=== PATIENT | female | born 1975 | race Caucasian/White ===

== ENCOUNTER 2016-05-24 10:54 | Inpatient (IN) | payer OTHER ==
[~2016-05-24] VITALS: Ht 172.7 cm; Wt 126.7 kg
[2016-09-29] MEDS ORDERED: ADVA500A INH (10:52)
[2016-09-29] MEDS ORDERED: ALBUAER3 INH (10:52)
[2016-09-29] MEDS ORDERED: OMEP40CA2 PO (10:52)
[2016-10-02] MEDS ORDERED: metroNIDAZOLE 500 MG INJ 100 ML IV SCH (05:30)
[2016-10-02] MEDS ORDERED: LACTATED RINGER'S 1000 ML IV SCH (05:30)
[2016-10-02] MEDS ORDERED: POVIDONE IODINE 5% (ANTISEPSIS KIT) 4 APPLICATIONS EACH NARE ONE (05:30)
[2016-10-02] MEDS ORDERED: CHLORHEXIDINE GLUCONATE 2 % 1 PACK (2 CLOTHS) TOP ONE (05:30)
[2016-10-02] MEDS ORDERED: SODIUM CHLORID 0.9% 500 ML IV SCH (05:30)
[2016-10-02] MEDS ORDERED: APREPITANT 40 MG CAP PO SCH (05:30)
[2016-10-02] MEDS ORDERED: INSULIN HUMAN REGULAR 1,000 UNITS/10 ML VIAL SQ PRN (05:30)
[2016-10-02] MEDS ORDERED: ACETAMINOPHEN 1000 MG/100 ML VIAL IV SCH (05:30)
[2016-10-02] MEDS ORDERED: METOPROLOL TARTRATE 25 MG TAB PO PRN (05:30)
[2016-10-02] MEDS ORDERED: SCOPOLAMINE 1.5 MG PATCH T-DERMAL SCH (05:30)
[2016-10-02] MEDS ORDERED: ONDANSETRON HCL 4 MG/2 ML VIAL IV PUSH SCH (05:30)
[2016-10-02] MEDS ORDERED: ceFAZolin 2 GM PREMIX 50 ML IV SCH (05:30)
[2016-10-02] MEDS ORDERED: ERGO1CAP10 PO (06:02)
[2016-10-02 06:06] VITALS: BP 144/91; PULSE 87; RESP 20; TEMP 98; O2SAT 99
[2016-10-02] MEDS ORDERED: BUPIVACAINE/EPINEPHRINE 0.25% 50 ML VIAL ONE (06:48)
[2016-10-02] MEDS ORDERED: HYDROmorphone HCL PF 2 MG/ML VIAL ONE (07:00)
[2016-10-02] MEDS ORDERED: FAMOTIDINE 20 MG/2 ML VIAL ONE (07:11)
[2016-10-02] MEDS ORDERED: MIDAZOLAM HCL 2 MG/2 ML VIAL ONE (07:11)
[2016-10-02] MEDS ORDERED: PROPOFOL 200 MG/20 ML AMP IV ONE (07:36)
[2016-10-02] MEDS ORDERED: ONDANSETRON HCL 4 MG/2 ML VIAL IV PUSH ONE (07:36)
[2016-10-02] MEDS ORDERED: LACTATED RINGER'S 1000 ML INJ 1,000 ML IV ONE (07:36)
[2016-10-02] MEDS ORDERED: NEOSTIGMINE 3 MG/3 ML SYR IV ONE (07:36)
[2016-10-02] MEDS ORDERED: METHYLENE BLUE 100 MG/10 ML VIAL OTHER ONE (08:06)
[2016-10-02] MEDS: D5-1/2 NS + KCL 20 MEQ INJ 1,000 ML IV SCH ×3 (09:02→20:09)
[2016-10-02] MEDS ORDERED: Post-op Orders (for Pharmacy) MISC XX ONE (09:15)
[2016-10-02] MEDS ORDERED: diphenhydrAMINE HCL ELIXIR 12.5 MG/5 ML CUP PO PRN (09:15)
[2016-10-02] MEDS ORDERED: NALOXONE HCL 0.4 MG/ML AMP IV PRN (09:15)
[2016-10-02] MEDS ORDERED: ACETAMINOPHEN 325MG/HYDROcodone 7.5MG/15ML UDC PO PRN ×2 (09:15)
[2016-10-02] MEDS ORDERED: ENALAPRILAT 1.25 MG/ML VIAL IV PUSH PRN (09:15)
[2016-10-02] MEDS ORDERED: SODIUM CHLORIDE 0.9% FLUSH 5 ML FLUSH IVF PRN (09:15)
[2016-10-02] MEDS ORDERED: ONDANSETRON HCL 4 MG/2 ML VIAL IV PRN (09:15)
[2016-10-02] MEDS ORDERED: MORPHINE SULFATE 30 MG/30 ML PCA IV SCH (09:15)
[2016-10-02] MEDS ORDERED: diphenhydrAMINE HCL 50 MG/ML VIAL IV PRN (09:15)
[2016-10-02] MEDS ORDERED: fentaNYL CITRATE 250 MCG/5 ML AMP ONE (09:19)
[2016-10-02] MEDS ORDERED: *ONDANSETRON 4 MG VIAL PERIprocedural Use ONLY ONE (09:33)
[2016-10-02] MEDS ORDERED: *morphine SULFATE 8 MG/ML PERIprocedure ONLY ONE ×2 (09:37→10:25)
[2016-10-02] MEDS: METOCLOPRAMIDE HCL 10 MG/2 ML VIAL IVS SCH ×3 (10:00→20:14)
[2016-10-02 12:00] VITALS: BP 122/58; PULSE 81; RESP 17; TEMP 96.7; O2SAT 98
[2016-10-02] MEDS ORDERED: ACETAMINOPHEN 1000 MG/100 ML VIAL IV PRN (12:00)
[2016-10-02] MEDS: PCA - TOTAL MG MORPHINE DELIVERED PER SHIFT SCH ×2 (14:00→20:15)
[2016-10-02] MEDS: metroNIDAZOLE 500 MG INJ 100 ML IV SCH ×2 (15:46→20:10)
[2016-10-02] MEDS: ENOXAPARIN SODIUM 40 MG/0.4 ML SYRINGE SQ SCH (15:47)
--- NOTE | 2016-10-02 15:51 | MP ---
cc: EMELYN MULLIGAN DATE OF SURGERY 10/02/2016 DATE OF 1975 PREOPERATIVE DIAGNOSIS Morbid obesity with a BMI of 42. POSTOPERATIVE DIAGNOSIS Morbid obesity with a BMI of 42. PROCEDURE Laparoscopic Francesco-en-Y gastric bypass, 100-cm Francesco limb, antegastric antecolic. SURGEON Emelyn Mulligan MD SURGEON KNEE BOLTER MD Dr. Kirt Colindres's assistance was necessary for the procedure secondary to the complexity of the case. Dr. Moralez assisted with manipulation and exposure during the entire procedure. Geothermal Production Manager provided by the hospital was utilized at the back table. ANESTHESIA General endotracheal anesthesia. ESTIMATED BLOOD LOSS Scant. FINDINGS Fatty liver. SPECIMENS None. COMPLICATIONS None. OPERATION The patient was brought to the operating room and placed on the operating table in supine position, bilateral sequential inflation device placed on lower extremities, general anesthesia instituted, antibiotics initiated. The abdomen was prepped and draped sterilely. A poin 18-cm distal to the xiphoid in the midline anesthetized with 0.25% Marcaine with epinephrine. The skin incision was made, a 5-mm OptiView port placed under direct vision and pneumoperitoneum was created. Under direct vision a 5-mm left upper quadrant, 12-mm left upper quadrant, 12-mm right upper quadrant and 5-mm right upper quadrant ports were placed. Prior to placement of all ports, the skin and peritoneum were anesthetized with 0.25% Marcaine with epinephrine. The patient's omentum was lifted into the upper abdomen. It was split down the middle to create a path for the Francesco limb. The ligament of Treitz was identified, a point 40 cm distal identified. The small bowel was divided in this region using an [place] Flex stapler vascular load reinforced with SeamGuard. The distal segment was brought up for a distance of 100 cm, enterotomy created in this region, enterotomy in the biliopancreatic limb and a [id number] stapled jejunojejunostomy created in the usual manner. The mesenteric defect at the jejunojejunostomy was closed with 2-0 Surgidac suture in a running manner. The patient was placed in reverse Trendelenburg position with the left side up. The [place]-Flex retractor was placed. The left lobe of the liver was retracted. The angle of His was taken down bluntly, a point 5 cm distal to the GE junction along the lesser curve identified, the lesser sac entered using blunt dissection. The stomach was partitioned horizontally using an [place]-Flex stapler blue load, an additional firing taken directed towards the angle of His to completely divide the stomach. A gastrotomy created in the new stomach, enterotomy in the Francesco limb and gastrojejunostomy created, stomal opening of 2 cm. An 18-Egyptian OG tube was placed across the anastomosis, the defect then closed in two layers of running 2-0 Vicryl. Prior to placement of the second layer, methylene blue instilled through the OG tube. There was no evidence of extravasation. Evicel was then placed over the gastrojejunostomy, jejunojejunostomy and all staple lines. The operative field inspected and hemostasis was present. The CO2 was released, all ports were removed. All skin incisions were closed with 4-0 Monocryl. The abdominal wall was cleaned and a sterile dressing placed. The patient was awakened and taken to the recovery room. MD MEÑO Balderas/KK /9:12 AM /3:38 PM
[2016-10-02 16:00] VITALS: BP 122/60; PULSE 90; RESP 17; TEMP 97.5; O2SAT 98
[2016-10-02 16:17] VITALS: O2SAT 98
[2016-10-02] MEDS: RESP: ALBUTEROL 2.5 MG/3 ML NEB (SCH) INH ×2 (16:31→21:00)
[2016-10-02 20:00] VITALS: BP 116/69; PULSE 87; RESP 20; TEMP 97.7; O2SAT 97
[2016-10-02] MEDS: ONDANSETRON HCL 4 MG/2 ML VIAL IV PRN (20:06)
[2016-10-02] MEDS: SODIUM CHLORIDE 0.9% FLUSH 5 ML FLUSH IVF SCH (20:15)
[2016-10-02 21:02] VITALS: O2SAT 97
[2016-10-03] VITALS (7 sets, daily range): BP systolic 119–141; BP diastolic 60–78; PULSE 56–82; RESP 16–20; TEMP 96–98.4; O2SAT 97–100
[2016-10-03] MEDS: RESP: ALBUTEROL 2.5 MG/3 ML NEB (SCH) INH ×6 (04:00→21:04)
[2016-10-03] MEDS: metroNIDAZOLE 500 MG INJ 100 ML IV SCH (04:43)
[2016-10-03] MEDS: METOCLOPRAMIDE HCL 10 MG/2 ML VIAL IVS SCH (04:43)
[2016-10-03] MEDS: PCA - TOTAL MG MORPHINE DELIVERED PER SHIFT SCH (04:51)
[2016-10-03 05:15] LABS: AUTOMATED NEUTROPHIL # 6.3 TH/MM3 (1.8-7.7); BASOPHIL % 0.5 % (0.0-2.0); EOSINOPHIL % 0.3 % (0.0-4.0); HEMATOCRIT 31.5 % (35.0-46.0); HEMO FLAGS DIFF FINAL; LYMPH % 27.8 % (9.0-44.0); LYMPHOCYTE # 2.8 TH/MM3 (1.0-4.8); MEAN CELL VOLUME 81.5 FL (80.0-100.0); MEAN CORPUSCULAR HEMOGLOBIN 25.6 PG (27.0-34.0); MEAN CORPUSCULAR HGB CONC 31.4 % (32.0-36.0); MONO % 8.7 % (0.0-8.0); NEUT % 62.7 % (16.0-70.0); PLATELET COUNT 276 TH/MM3 (150-450); RED BLOOD COUNT 3.87 MIL/MM3 (4.00-5.30); RED CELL DISTRIBUTION WIDTH 15.2 % (11.6-17.2); WHITE BLOOD COUNT 10.1 TH/MM3 (4.0-11.0)
[2016-10-03 05:45] LABS: BICARBONATE 26.5 MEQ/L (21.0-32.0); MAGNESIUM 2.2 MG/DL (1.5-2.5); POTASSIUM 3.8 MEQ/L (3.5-5.1)
[2016-10-03] MEDS: SODIUM CHLORIDE 0.9% FLUSH 5 ML FLUSH IVF SCH ×2 (07:57→21:00)
[2016-10-03] MEDS: PANTOPRAZOLE SODIUM 40 MG VIAL IVP SCH (07:57)
[2016-10-03] MEDS: PANTOPRAZOLE SOD 40 MG DELAYED RELEASE TAB PO SCH (07:57)
[2016-10-03] MEDS: D5-1/2 NS + KCL 20 MEQ INJ 1,000 ML IV SCH ×3 (07:58→17:23)
[2016-10-03] MEDS ORDERED: PNEUMOCOCCAL POLYVALENT INJ 25 MCG/0.5 ML SYR IM ONE (10:00)
[2016-10-03] MEDS ORDERED: INFLUENZA VIRUS VACCINE (QUADRIVALENT) 0.5 ML SYR IM ONE (10:00)
[2016-10-03] MEDS ORDERED: METOCLOPRAMIDE HCL 10 MG/2 ML VIAL IVS PRN (10:00)
[2016-10-03] MEDS: ONDANSETRON HCL 4 MG/2 ML VIAL IV PRN ×2 (11:51→18:14)
[2016-10-03] MEDS: ENOXAPARIN SODIUM 40 MG/0.4 ML SYRINGE SQ SCH (13:55)
[2016-10-04] VITALS: BP 134/88; PULSE 88; RESP 20; TEMP 99.7; O2SAT 96
[2016-10-04] MEDS: RESP: ALBUTEROL 2.5 MG/3 ML NEB (SCH) INH ×3 (00:36→07:45)
[2016-10-04 00:39] VITALS: O2SAT 99
[2016-10-04] MEDS: D5-1/2 NS + KCL 20 MEQ INJ 1,000 ML IV SCH ×3 (01:02→08:10)
[2016-10-04 07:45] VITALS: O2SAT 98
[2016-10-04 08:00] VITALS: BP 124/81; PULSE 90; RESP 17; TEMP 97.4; O2SAT 98
[2016-10-04] MEDS: PANTOPRAZOLE SODIUM 40 MG VIAL IVP SCH (08:07)
[2016-10-04] MEDS: SODIUM CHLORIDE 0.9% FLUSH 5 ML FLUSH IVF SCH (08:10)
[2016-10-04] MEDS: PANTOPRAZOLE SOD 40 MG DELAYED RELEASE TAB PO SCH (08:11)
--- NOTE | 2016-10-04 11:02 | HHI.PR ---
Subjective Subjective Notes pt comfortable no cp no sob agatha liquids Objective Vitals/I&O Vital Signs Date Time Temp Pulse Resp B/P Pulse Ox O2 Delivery O2 Flow Rate FiO2 10/04/16 08:00 97.4 90 17 124/81 98 10/04/16 00:39 21 10/02/16 10:30 Nasal Cannula 4 Abdomen: Post-op tenderness Extremities: Perfused Wound Wound : Wound Location: Abdomen Appearance: Clean & Dry A/P Assessment and Plan s/p LRYGBP doing well d/c home Kwame Pedraza MD Oct 04, 2016 11:02
== END 2016-10-04 11:53 | disposition home or self-care (01) | DRG 621 ==
LOC: HSDI 10-02 05:06 → N07B 10-02 11:10
PROVIDERS: ADMIT Surgery; ATTEND Surgery
PROC: 0D164ZA Bypass Stomach to Jejunum, Percutaneous Endoscopic Approach (ICD-10-PCS; principal; 2016-10-02 07:15)
DX: E66.01 Morbid (severe) obesity due to excess calories (principal); K76.0 Fatty (change of) liver, not elsewhere classified; Z68.41 Body mass index [BMI] 40.0-44.9, adult; K21.9 Gastro-esophageal reflux disease without esophagitis; J45.909 Unspecified asthma, uncomplicated
CPT/HCPCS: 80048; 83735; 85025; 90686; 90732; 94150; 94640; 94664; J0131; J0690; J1170; J1650; J2250; J2270; J2405; J2710; J2765; J3010; J3480; J7120; J7613; J8501; Q2038

== ENCOUNTER 2016-10-10 15:34 | Inpatient (IN) | payer OTHER ==
[~2016-10-10] VITALS: Ht 172.7 cm; Wt 130.0 kg
[~2016-10-10 15:34] MED LIST: ADVA500A INH; ALBUAER3 INH; ERGO1CAP10 PO; OMEP40CA2 PO
[2016-10-10 15:40] VITALS: BP 127/80; PULSE 87; RESP 16; TEMP 97.9; O2SAT 98
[2016-10-10] MEDS ORDERED: SODIUM CHLORIDE 0.9% FLUSH 10 ML FLUSH IV FLUSH PRN (17:00)
[2016-10-10] MEDS ORDERED: SODIUM CHLOR 0.9% 1000 ML INJ 1,000 ML IV SCH (17:00)
[2016-10-10] MEDS ORDERED: ONDANSETRON HCL 4 MG/2 ML VIAL IVP ONE (17:00)
[2016-10-10] MEDS ORDERED: MORPHINE SULFATE 4 MG/ML INJ IV PUSH ONE (17:00)
[2016-10-10 17:03] VITALS: RESP 18; O2SAT 100
[2016-10-10 17:20] LABS: AUTOMATED NEUTROPHIL # 7.7 TH/MM3 (1.8-7.7); BASOPHIL % 0.4 % (0.0-2.0); EOSINOPHIL # 0.1 TH/MM3 (0-0.4); EOSINOPHIL % 0.6 % (0.0-4.0); HEMO FLAGS DIFF FINAL; LYMPH % 13.4 % (9.0-44.0); LYMPHOCYTE # 1.3 TH/MM3 (1.0-4.8); MEAN CELL VOLUME 81.7 FL (80.0-100.0); MEAN CORPUSCULAR HEMOGLOBIN 26.4 PG (27.0-34.0); MEAN CORPUSCULAR HGB CONC 32.3 % (32.0-36.0); MONO % 4.7 % (0.0-8.0); NEUT % 80.9 % (16.0-70.0); PLATELET COUNT 322 TH/MM3 (150-450); RED BLOOD COUNT 4.53 MIL/MM3 (4.00-5.30); RED CELL DISTRIBUTION WIDTH 15.2 % (11.6-17.2); WHITE BLOOD COUNT 9.5 TH/MM3 (4.0-11.0)
[2016-10-10 17:22] LABS: BLOOD, URINE NEG (NEG); COMMENT (UR) CULT NOT INDICATED; CULTURE IF INDICATED CULT NOT INDICATED; GLUCOSE,URINE NEG (NEG); HYALINE CAST, URINE 1 /lpf (RARE); KETONE, URINE 150 mg/dL (NEG); MUCUS URINE FEW /lpf (OCC); NITRITE,URINE NEG (NEG); PH, URINE 5.5 (5.0-8.5); SQUAMOUS EPITHELIAL CELL URINE 1 /hpf (0-5); URINE COLOR YELLOW (YELLW/STRAW)
[2016-10-10] MEDS ORDERED: DIATRIZOATE MEGLUM/DIATRIZOATE SOD 9 ML CUP ONE (17:22)
[2016-10-10 17:55] LABS: ANION GAP 11 MEQ/L (5-15); AST (GOT) 36 U/L (15-37); BICARBONATE 18.3 MEQ/L (21.0-32.0); BLOOD UREA NITROGEN 9 MG/DL (7-18); CHLORIDE 105 MEQ/L (98-107); GLOMERULAR FILTRATION RATE 87 ML/MIN (>89); SODIUM (NA) 134 MEQ/L (136-145)
[2016-10-10 18:00] LABS: ALKALINE PHOSPHATASE 50 U/L (45-117); ALT (GPT) 60 U/L (10-53); BETA HCG QUANT LESS THAN 1 MIU/ML (0-5); TOTAL BILIRUBIN ADULT 0.6 MG/DL (0.2-1.0)
--- NOTE | 2016-10-10 18:04 | PD ---
HPI Chief Complaint: Abdominal Pain Time Seen by Provider: 16:52 Travel History International Travel<30 days: No Contact w/Intl Traveler<30days: No Traveled to known affect area: No History of Present Illness HPI 41-year-old woman who presents emergent [place] of abdominal pain. She underwent a laparoscopic Francesco-en-Y gastric bypass bariatric surgery with Dr. Estrella 8 days ago, on October 02. She initially was doing well. She is continuing on her liquid diet as instructed. She was not needing any pain medicine. Today she started getting nausea vomiting and epigastric abdominal pain. She took her liquid Lortab as prescribed, as well as some Zofran. She spoke to Dr. Estrella's office. She is not improving and so she was referred to the emergency department. Her last bowel movement was 4 days ago. There is some concern she may have constipation as well so she took 2 Colace tablets. She has been passing gas. Boyfriend/ states that she is she also having increasing belching. She has had some chills, no urinary symptoms. No other complaints. History Past Medical History Narrative Medical Morbid obesity, status post Francesco-en-Y gastric bypass October 02, 2016 : 1 Para: 1 Social History Alcohol Use: No Tobacco Use: No Allergies-Medications (Allergen,Severity, Reaction): Coded Allergies: No Known Allergies (Unverified , 10/02/16) Reported Meds & Prescriptions Reported Meds & Active Scripts Active Reported Zofran Odt (Ondansetron Odt) 4 Mg Tab 4 Mg SL Q6HR PRN Colace (Docusate Sodium) 100 Mg Cap 100 Mg PO BID PRN Hydrocodone-Acetaminophen Liq 7.5-325 Mg/15 Ml Soln 15 Ml PO Q4-6H PRN Pantoprazole (Pantoprazole Sodium) 40 Mg Tab 40 Mg PO DAILY Vitamin D (Ergocalciferol) 50,000 Unit Cap 50,000 Units PO Q7D Proair Hfa 8.5 GM Inh (Albuterol Sulfate) 90 Mcg/Act Aer 2 Puff INH Q4-6H PRN 108 mcg/actuation Advair Diskus Inh (Fluticasone-Salmeterol Inh) 500-50 Mcg/Blist Aer 2 Puff INH BID Rinse mouth after use. Review of Systems Except as stated in HPI: all other systems reviewed are Neg Physical Exam Narrative GENERAL: Well-appearing 41 year-old woman, appears uncomfortable but nontoxic. SKIN: Focused skin assessment warm/dry. HEAD: Atraumatic. Normocephalic. CARDIOVASCULAR: Regular rate and rhythm. No murmur appreciated. RESPIRATORY: No accessory muscle use. Clear to auscultation. Breath sounds equal bilaterally. GASTROINTESTINAL: Abdomen is obese, soft. She has 5 laparoscopic port incisions that are well approximated, Steri-Strips in place without any drainage or erythema or redness. She has moderate epigastric tenderness to palpation. No rebound or guarding. MUSCULOSKELETAL: No obvious deformities. No edema. NEUROLOGICAL: Awake and alert. No obvious cranial nerve deficits. Motor grossly within normal limits. Normal speech. PSYCHIATRIC: Appropriate mood and affect; insight and judgment normal. Data Data Last Documented VS Vital Signs Date Time Temp Pulse Resp B/P Pulse Ox O2 Delivery O2 Flow Rate FiO2 10/10/16 17:03 18 100 Room Air 10/10/16 15:40 97.9 87 127/80 Orders Beta Hcg (Quant/Titer) (10/10/16 17:00) Complete Blood Count With Diff (10/10/16 17:00) Comprehensive Metabolic Panel (10/10/16 17:00) Lipase (10/10/16 17:00) Urinalysis - C+S If Indicated (10/10/16 17:00) Iv Access Insert/Monitor (10/10/16 17:00) Ecg Monitoring (10/10/16 17:00) Oximetry (10/10/16 17:00) NPO (10/10/16 17:00) Morphine Inj (Morphine Inj) (10/10/16 17:00) Ondansetron Inj (Zofran Inj) (10/10/16 17:00) Sodium Chlor 0.9% 1000 Ml Inj (Ns 1000 M (10/10/16 17:00) Sodium Chloride 0.9% Flush (Ns Flush) (10/10/16 17:00) Ed Urine Pregnancytest Poc (10/10/16 17:00) Ct Abd/Pel W Iv Contrast(Rout) (10/10/16 ) Oral Contrast - Adult (10/10/16 17:16) Diatrizoate Liq ( Gastroview Liq) (10/10/16 17:22) Iohexol 350 Inj (Omnipaque 350 Inj) (10/10/16 18:34) Admit Order (Ed Use Only) (10/10/16 ) Morphine Inj (Morphine Inj) (10/10/16 19:15) Ondansetron Inj (Zofran Inj) (10/10/16 19:15) Labs Laboratory Tests Test 10/10/16 17:12 White Blood Count 9.5 TH/MM3 Red Blood Count 4.53 MIL/MM3 Hemoglobin 12.0 GM/DL Hematocrit 37.0 % Mean Corpuscular Volume 81.7 FL Mean Corpuscular Hemoglobin 26.4 PG Mean Corpuscular Hemoglobin 32.3 % Concent Red Cell Distribution Width 15.2 % Platelet Count 322 TH/MM3 Mean Platelet Volume 7.7 FL Neutrophils (%) (Auto) 80.9 % Lymphocytes (%) (Auto) 13.4 % Monocytes (%) (Auto) 4.7 % Eosinophils (%) (Auto) 0.6 % Basophils (%) (Auto) 0.4 % Neutrophils # (Auto) 7.7 TH/MM3 Lymphocytes # (Auto) 1.3 TH/MM3 Monocytes # (Auto) 0.4 TH/MM3 Eosinophils # (Auto) 0.1 TH/MM3 Basophils # (Auto) 0.0 TH/MM3 CBC Comment DIFF FINAL Differential Comment Urine Color YELLOW Urine Turbidity CLEAR Urine pH 5.5 Urine Specific [place] 1.028 Urine Protein 30 mg/dL Urine Glucose (UA) NEG mg/dL Urine Ketones 150 mg/dL Urine Occult Blood NEG Urine Nitrite NEG Urine Bilirubin NEG Urine Urobilinogen 2.0 MG/DL Urine Leukocyte Esterase NEG Urine RBC LESS THAN 1 /hpf Urine WBC 1 /hpf Urine Squamous Epithelial 1 /hpf Cells Urine Hyaline Casts 1 /lpf Urine Mucus FEW /lpf Microscopic Urinalysis Comment CULT NOT INDICATED Sodium Level 134 MEQ/L Potassium Level 4.0 MEQ/L Chloride Level 105 MEQ/L Carbon Dioxide Level 18.3 MEQ/L Anion Gap 11 MEQ/L Blood Urea Nitrogen 9 MG/DL Creatinine 0.74 MG/DL Estimat Glomerular Filtration 87 ML/MIN Rate Random Glucose 82 MG/DL Calcium Level 9.4 MG/DL Total Bilirubin 0.6 MG/DL Aspartate Amino Transf 36 U/L (AST/SGOT) Alanine Aminotransferase 60 U/L (ALT/SGPT) Alkaline Phosphatase 50 U/L Total Protein 8.5 GM/DL Albumin 4.1 GM/DL Lipase 317 U/L Human Chorionic Gonadotropin, LESS THAN 1 Quant MIU/ML MDM Medical Decision Making Medical Screen Exam Complete: Yes Emergency Medical Condition: Yes Interpretation(s) LABS: CBC unremarkable. CMP unremarkable. HCG negative Lipase normal UA unremarkable CT abdomen and pelvis: Multiple dilated loops of jejunum with some wall thickening involving portions of the dilated loops suggesting possible partial small bowel obstruction, ileus and/or jejunitis. Differential Diagnosis Obstruction, gastric outlet obstruction, gastritis, infection or abscess, ileus , other Narrative Course Medical decision making INITIAL: Is a 41-year-old woman who presents to the emergency department complaining of epigastric abdominal pain for 8 days status post gastric bypass surgery. She has epigastric tenderness. She was doing well initially. I spoke with Dr. Estrella, we'll get CT of the abdomen and pelvis, reassess. Sharif Parham MD Oct 10, 2016 18:04
[2016-10-10] MEDS ORDERED: COLA100C3 PO (18:21)
[2016-10-10] MEDS ORDERED: PANT40TA3 PO (18:21)
[2016-10-10] MEDS ORDERED: ZOFR4TAB3 SL (18:21)
[2016-10-10] MEDS ORDERED: HYDR1SOL3 PO (18:21)
[2016-10-10] MEDS ORDERED: IOHEXOL 350 MG/ML 10 ML VIAL (for RAD DIAG) IV ONE (18:34)
--- NOTE | 2016-10-10 19:02 | RADRPT ---
EXAM DATE/TIME: 10/10/2016 18:27 [facility] COMPARISON: No previous studies available for comparison. INDICATIONS : Severe pain with vomiting after gastric bypass yesterday. IV CONTRAST: 86 cc Omnipaque 350 (iohexol) IV ORAL CONTRAST: Prescribed oral contrast ingested. RADIATION DOSE: 26.03 CTDIvol (mGy) MEDICAL HISTORY : Uterine fibroids. SURGICAL HISTORY : Gastric bypass. Uterine fibroid removed. ENCOUNTER: Initial ACUITY: 1 day PAIN SCALE: 6/10 LOCATION: Abdomen/pelvis TECHNIQUE: Volumetric scanning of the abdomen and pelvis was performed. Using automated exposure control and ad justment of the mA and/or kV according to patient size, radiation dose was kept as low as reasonably achievable to obtain optimal diagnostic quality images. FINDINGS: There are several loops of mildly dilated jejunum within the mid abdomen as well as mild wall thicken ing involving portions of the dilated loops suggesting focal jejunitis and possible partial small bow el obstruction or ileus. Some ascites is noted adjacent to the dilated jejunal loops and within the pelvis. There is diffuse fatty infiltration of the liver. No focal hepatic mass is noted. No bilia ry ductal dilatation is noted. The gallbladder is unremarkable. The spleen is normal. Gastric bypa ss with probable gastrojejunostomy is noted. The pancreas is normal. The adrenal glands are normal bilaterally. The kidneys enhance briskly and demonstrate no evidence of focal mass or hydronephrosis . The uterus is enlarged and contains at least two fibroids measuring 5.4 cm and 2.9 cm. The urinar y bladder is unremarkable. No adnexal mass is noted. The colon is nondilated. Ileal loops are unre markable. The visualized lung bases are clear. CONCLUSION: 1. Multiple dilated loops of jejunum with some wall thickening involving portions of the dilated loo ps suggesting possible partial small bowel obstruction, ileus and/or jejunitis. 2. Fatty liver. 3. Fibroid uterus. 4. Minimal ascites within the abdomen and pelvis. Bart Rivera MD on October 10, 2016 at 18:47 Board Certified Radiologist. This report was verified electronically.
[2016-10-10] MEDS: MORPHINE SULFATE 4 MG/ML INJ IV PUSH PRN (22:17)
[2016-10-10 23:08] VITALS: BP 116/59; PULSE 91; RESP 20; O2SAT 98
[2016-10-11] VITALS (8 sets, daily range): BP systolic 102–130; BP diastolic 55–69; PULSE 78–98; RESP 18–20; TEMP 97.6–98.4; O2SAT 94–100
[2016-10-11] MEDS: D5-1/2 NS + KCL 20 MEQ INJ 1,000 ML IV SCH ×3 (02:15→22:15)
[2016-10-11] MEDS: ONDANSETRON HCL 4 MG/2 ML VIAL IV PUSH PRN ×4 (02:32→22:12)
[2016-10-11] MEDS: MORPHINE SULFATE 4 MG/ML INJ IV PUSH PRN ×4 (02:52→22:06)
[2016-10-11 08:01] LABS: AUTOMATED NEUTROPHIL # 5.9 TH/MM3 (1.8-7.7); BASOPHIL % 0.5 % (0.0-2.0); EOSINOPHIL # 0.2 TH/MM3 (0-0.4); EOSINOPHIL % 1.7 % (0.0-4.0); HEMATOCRIT 34.8 % (35.0-46.0); HEMO FLAGS DIFF FINAL; LYMPH % 27.1 % (9.0-44.0); LYMPHOCYTE # 2.6 TH/MM3 (1.0-4.8); MEAN CELL VOLUME 81.1 FL (80.0-100.0); MEAN CORPUSCULAR HEMOGLOBIN 26.8 PG (27.0-34.0); MONO % 9.6 % (0.0-8.0); NEUT % 61.1 % (16.0-70.0); PLATELET COUNT 346 TH/MM3 (150-450); RED BLOOD COUNT 4.29 MIL/MM3 (4.00-5.30); RED CELL DISTRIBUTION WIDTH 15.6 % (11.6-17.2); WHITE BLOOD COUNT 9.6 TH/MM3 (4.0-11.0)
[2016-10-12] VITALS: BP 128/74; PULSE 86; RESP 20; TEMP 98.2; O2SAT 97
[2016-10-12] MEDS: D5-1/2 NS + KCL 20 MEQ INJ 1,000 ML IV SCH ×3 (04:55→16:39)
[2016-10-12 08:00] VITALS: BP 117/82; PULSE 85; RESP 20; TEMP 97.1; O2SAT 97
[2016-10-12] MEDS ORDERED: PANTOPRAZOLE SODIUM 40 MG VIAL IV PUSH SCH (09:14)
[2016-10-12 10:39] LABS: AUTOMATED NEUTROPHIL # 2.4 TH/MM3 (1.8-7.7); BASOPHIL % 0.6 % (0.0-2.0); EOSINOPHIL # 0.2 TH/MM3 (0-0.4); EOSINOPHIL % 3.7 % (0.0-4.0); HEMATOCRIT 32.4 % (35.0-46.0); HEMO FLAGS DIFF FINAL; LYMPH % 32.6 % (9.0-44.0); LYMPHOCYTE # 1.6 TH/MM3 (1.0-4.8); MEAN CELL VOLUME 81.3 FL (80.0-100.0); MEAN CORPUSCULAR HEMOGLOBIN 26.2 PG (27.0-34.0); MEAN CORPUSCULAR HGB CONC 32.3 % (32.0-36.0); MONO % 13.7 % (0.0-8.0); NEUT % 49.4 % (16.0-70.0); PLATELET COUNT 274 TH/MM3 (150-450); RED BLOOD COUNT 3.99 MIL/MM3 (4.00-5.30); RED CELL DISTRIBUTION WIDTH 15.6 % (11.6-17.2); WHITE BLOOD COUNT 4.9 TH/MM3 (4.0-11.0)
[2016-10-12 12:00] VITALS: BP 113/60; PULSE 77; RESP 22; TEMP 98.6; O2SAT 97
[2016-10-12 16:00] VITALS: BP 116/65; PULSE 86; RESP 18; TEMP 97.1; O2SAT 99
[2016-10-12] MEDS: SUCRALFATE 1 GM/10 ML CUP PO SCH ×2 (16:32→20:41)
--- NOTE | 2016-10-12 19:56 | HHI.PR ---
Subjective Subjective Notes Patient comfortable pos flatus no bm no nausea Objective Vitals/I&O Vital Signs Date Time Temp Pulse Resp B/P Pulse Ox O2 Delivery O2 Flow Rate FiO2 10/12/16 16:00 97.1 86 18 116/65 99 10/10/16 17:03 Room Air Labs Laboratory Tests Test 10/12/16 10:18 White Blood Count 4.9 Red Blood Count 3.99 Hemoglobin 10.5 Hematocrit 32.4 Mean Corpuscular Volume 81.3 Mean Corpuscular Hemoglobin 26.2 Mean Corpuscular Hemoglobin 32.3 Concent Red Cell Distribution Width 15.6 Platelet Count 274 Mean Platelet Volume 7.9 Neutrophils (%) (Auto) 49.4 Lymphocytes (%) (Auto) 32.6 Monocytes (%) (Auto) 13.7 Eosinophils (%) (Auto) 3.7 Basophils (%) (Auto) 0.6 Neutrophils # (Auto) 2.4 Lymphocytes # (Auto) 1.6 Monocytes # (Auto) 0.7 Eosinophils # (Auto) 0.2 Basophils # (Auto) 0.0 CBC Comment DIFF FINAL Differential Comment Lungs: Clear Abdomen: Non-tender Extremities: Perfused Wound Wound : Wound Location: Abdomen Appearance: Clean & Dry A/P Assessment and Plan s/p lap RYGBP dilated loops of bowel on ct ? jejunitis vs psbo start liquids cont to monitor will change to full admit as pt met inpatient criteria on admission Kwame Pedraza MD Oct 12, 2016 19:55
[2016-10-12 20:00] VITALS: BP 116/60; PULSE 98; RESP 21; TEMP 97.7; O2SAT 96
[2016-10-12] MEDS: PANTOPRAZOLE SODIUM 40 MG VIAL IV PUSH SCH (20:41)
[2016-10-12 23:42] VITALS: BP 130/68; PULSE 82; RESP 20; TEMP 97.4; O2SAT 97
[2016-10-13] MEDS: D5-1/2 NS + KCL 20 MEQ INJ 1,000 ML IV SCH ×4 (01:16→22:15)
[2016-10-13 08:00] VITALS: BP 112/64; PULSE 78; RESP 18; TEMP 97; O2SAT 99
[2016-10-13 08:11] LABS: BICARBONATE 24.4 MEQ/L (21.0-32.0); MAGNESIUM 1.9 MG/DL (1.5-2.5); POTASSIUM 4.1 MEQ/L (3.5-5.1)
[2016-10-13] MEDS: PANTOPRAZOLE SODIUM 40 MG VIAL IV PUSH SCH ×2 (08:22→22:11)
[2016-10-13] MEDS: SUCRALFATE 1 GM/10 ML CUP PO SCH ×4 (08:22→22:10)
[2016-10-13 12:00] VITALS: BP 121/74; PULSE 82; RESP 18; TEMP 96.3; O2SAT 100
[2016-10-13] MEDS ORDERED: CARA1SUS3 PO (12:45)
[2016-10-13] MEDS ORDERED: PANT40TA3 PO (12:47)
[2016-10-13] MEDS ORDERED: ENOXAPARIN SODIUM 40 MG/0.4 ML SYRINGE SQ SCH (13:00)
--- NOTE | 2016-10-13 13:15 | HHI.PR ---
Subjective Subjective Notes Patient ambulating around room, in no acute distress No nausea, vomiting, or pain No BM, positive flatus Objective Vitals/I&O Vital Signs Date Time Temp Pulse Resp B/P Pulse Ox O2 Delivery O2 Flow Rate FiO2 10/13/16 08:00 97.0 78 18 112/64 99 10/10/16 17:03 Room Air Labs Laboratory Tests Test 10/13/16 07:05 Sodium Level 139 Potassium Level 4.1 Chloride Level 108 Carbon Dioxide Level 24.4 Anion Gap 7 Blood Urea Nitrogen 2 Creatinine 0.76 Estimat Glomerular Filtration 85 Rate Random Glucose 114 Calcium Level 8.7 Magnesium Level 1.9 Cardiovascular: Regular Lungs: Clear Abdomen: Non-distended, Other (intermittent bowel sounds) Extremities: Perfused Wound Wound : Wound Location: Abdomen Appearance: Clean & Dry A/P Assessment and Plan s/p RYGBP with dilated loops of bowel on CT Continue with Carafate QID Progress to full liquid diet Will continue to monitor The exam, history, and the medical decision-making described in the above note were completed with the assistance of the mid-level provider. I reviewed and agree with the findings presented. I attest that I had a [id number] encounter with the patient on the same day, and personally performed and documented my assessment and findings in the medical record.. Discharge Planning Possibly tomorrow, depending on how diet progression goes Constance Rosa Oct 13, 2016 13:15 Kwame Pedraza MD Nov 08, 2016 07:49
[2016-10-13 16:00] VITALS: BP 118/66; PULSE 84; RESP 16; TEMP 97; O2SAT 10
[2016-10-13 20:00] VITALS: BP 126/58; PULSE 81; RESP 21; TEMP 96.5; O2SAT 100
[2016-10-14] VITALS: BP 113/60; PULSE 72; RESP 20; TEMP 96; O2SAT 93
[2016-10-14] MEDS: D5-1/2 NS + KCL 20 MEQ INJ 1,000 ML IV SCH (06:11)
[2016-10-14 08:00] VITALS: BP 115/73; PULSE 79; RESP 18; TEMP 97.2; O2SAT 99
[2016-10-14] MEDS: SUCRALFATE 1 GM/10 ML CUP PO SCH (08:21)
[2016-10-14] MEDS: PANTOPRAZOLE SODIUM 40 MG VIAL IV PUSH SCH (08:21)
--- NOTE | 2016-10-14 09:20 | HHI.PR ---
Subjective Subjective Notes pt comfortable pos bm Objective Vitals/I&O Vital Signs Date Time Temp Pulse Resp B/P Pulse Ox O2 Delivery O2 Flow Rate FiO2 10/14/16 08:00 97.2 79 18 115/73 99 10/10/16 17:03 Room Air Abdomen: Non-tender Extremities: Perfused Wound Wound : Wound Location: Abdomen Appearance: Clean & Dry A/P Assessment and Plan s/p lap RYGBP clinically improved d/c home on full liquids f/u office next week Kwame Pedraza MD Oct 14, 2016 09:20
--- NOTE | 2016-10-30 10:19 | MH ---
cc: EMELYN MULLIGAN DATE OF ADMISSION: 10/13/2016 1975 HISTORY OF PRESENT ILLNESS This is a 41-year-old female who underwent a laparoscopic Francesco-en-Y gastric bypass on October 02 by myself. She was doing well until the past few days, she began experiencing epigastric pain with difficulty on puree food. She had no improvement and progressed to inability to tolerate liquids. As a result she presented to the emergency room. She had a CAT scan of the abdomen and pelvis which revealed dilated proximal bowel, the findings of partial obstruction versus ileus. The patient continues with abdominal pain. No fevers, no chills, no chest pains or shortness of breath. PAST MEDICAL HISTORY Past medical history significant for above. PAST SURGICAL HISTORY Past surgical history significant for above. ALLERGIES She has NO KNOWN DRUG ALLERGIES. MEDICATION At home she is on: 1. Pantoprazole. 2. Zofran. 3. Hydrocodone. FAMILY HISTORY Noncontributory. SOCIAL HISTORY The patient does not smoke or drink alcohol. REVIEW OF SYSTEMS Review of systems significant for above. All other 10-point review negative. PHYSICAL EXAMINATION GENERAL: On exam the patient is laying on a bed in no acute distress. HEENT: The pupils are equal and reactive. Trachea is midline. NECK: Without JVD. RESPIRATIONS: Clear. CARDIOVASCULAR: Regular. GASTROINTESTINAL: Soft, positive tenderness in the epigastrium. MUSCULOSKELETAL: No deformities. NEUROLOGIC: Nonfocal. LABORATORY DATA White count 9.4 with 80% neutrophils. IMAGING STUDIES CAT scan of the abdomen and pelvis revealed multiple dilated loops of small bowel with thickening in the distal loops. ASSESSMENT This is a patient who has undergone a laparoscopic Francesco-en-Y gastric bypass approximately 8 days prior, who now has findings of partial obstruction versus jejunitis. The patient is being admitted. Will keep her n.p.o., provide pain management, serial abdominal exams. If the patient has no improvement in the next 24-48 hours, we will plan on laparoscopy. MD MEÑO Balderas/TLL /9:51 AM /10:01 AM
== END 2016-10-14 10:50 | disposition home or self-care (01) | DRG 392 ==
LOC: NEPC 15:34 → NEDH 19:14 → UNDOADMOB 19:14 → NEDA 19:14 → NEDH 10-11 01:06 → NEPHCDU 10-11 04:06 → N07A 10-11 16:57 → OBSVTOIN 10-13 12:43
PROVIDERS: ADMIT Surgery; ATTEND Surgery
DX: R10.13 Epigastric pain (principal); K56.60 Unspecified intestinal obstruction; Z68.41 Body mass index [BMI] 40.0-44.9, adult; E66.01 Morbid (severe) obesity due to excess calories; K52.9 Noninfective gastroenteritis and colitis, unspecified; Z98.84 Bariatric surgery status
CPT/HCPCS: 74177; 80048; 80053; 81001; 83690; 83735; 83880; 84702; 84703; 85025; 96361; 96374; 96375; C9113; G0378; J1650; J2270; J2405; J3480; J7030; Q9963; Q9967

== ENCOUNTER → 2016-12-21 | Day surgery (SDC) | payer OTHER ==
[~2016-12-21] MED LIST changes: +CARA1SUS3 PO; +COLA100C3 PO; +HYDR1SOL3 PO; +LACTATED RINGER'S 1000 ML INJ 1,000 ML ONE; -OMEP40CA2 PO; +PANT40TA3 PO; +PROPOFOL 500 MG/50 ML BTL IV ONE; +ZOFR4TAB3 SL
--- NOTE | 2016-12-21 11:38 | GIPROC ---
[facility] [address] [place], [id number] EGD WITH DILATION PROCEDURE REPORT EXAM DATE: 12/21/2016 PATIENT NAME: Jennifer Valero MR#: [id number] BIRTHDATE: 1975 ATTENDING: Sajan Moralez MD ORDER #: [id number] [employer] RECEIVING CLERK: Evelin Goetz [employer] PERSON STATUS: outpatient INDICATIONS: The patient is a 41 yr old female here for an EGD with dilation due to dysphagia and hx of RYBG c/o pressure and food getting stuck PROCEDURE PERFORMED: EGD w/ balloon dilation of gastrojejunostomy MEDICATIONS: None and Per Anesthesia. TOPICAL ANESTHETIC: none CONSENT: The patient understands the risks and benefits of the procedure and understands that these risks include, but are not limited to: sedation, allergic reaction, infection, perforation and/or bleeding. Alternative means of evaluation and treatment include, among others: physical exam, x-rays, and/or surgical intervention. The patient elects to proceed with this endoscopic procedure. medical equipment was checked for proper function. Hand hygiene and appropriate measures for infection prevention was taken. After the risks, benefits and alternatives of the procedure were thoroughly explained, Informed consent was verified, confirmed and timeout was successfully executed by the treatment team. The patient was anesthetized with anesthesia and the [id number] ([id number]) endoscope was introduced through the mouth and advanced to the anastomosis. The anastomosis was noted to be minimally strictured with small staple noted and mild erythema. The balloon was advanced through the anastomosis and dilated to 18, scant bleeding noted. blind limb 5cm. The instrument was slowly withdrawn as the mucosa was fully examined. Mild stricturing of GJ, minimal erythema, no ulcer. Dilation was performed at gastrostomy. DILATOR: SIZE(S): RESISTANCE: HEME: APPEARANCE: Dilator: Balloon Size(s): 18 Resistance: minimal Appearance: adequate COMMENT: dilation x2 Retroflexion was not performed ADVERSE EVENTS: There were no complications. IMPRESSIONS: 1. Mild stricturing of GJ, minimal erythema, no ulcer 2. Retroflexion was not performed RECOMMENDATIONS: Continue PPI REPEAT EXAM: NONE Sajan Moralez MD eSigned: Sajan Moralez MD 12/21/2016 11:38 AM cc: Kwame Pedraza M.D. PATIENT NAME: Jennifer Valero MR#: [id number]
== END | disposition home or self-care (01) ==
LOC: ESDC 09:52
PROVIDERS: ATTEND Surgery
DX: R13.10 Dysphagia, unspecified (principal); K22.2 Esophageal obstruction
CPT/HCPCS: 00740; 43245; C1726; J3010; J7120